=== PATIENT | female | born 2000 | race Caucasian/White ===

== ENCOUNTER 2023-08-03 21:07 | Emergency (ER) | payer BC, SELFPAY ==
--- NOTE | 2023-08-03 | ECG_ITS ---
Test Reason : DIZZINESS/PALPITATIONS Blood Pressure : / mmHG Vent. Rate : 098 BPM Atrial Rate : 098 BPM P-R Int : 116 ms QRS Dur : 078 ms QT Int : 344 ms P-R-T Axes : 010 035 019 degrees QTc Int : 439 ms Normal sinus rhythm Normal ECG No previous ECGs available Referred By: Generic ED Physician Electronically Signed By:Joe Washington
[2023-08-03 21:11] VITALS: BP 136/82; PULSE 106; RESP 18; TEMP 36.8; O2SAT 97; BMI 27.5
--- NOTE | 2023-08-03 21:24 | MHC.EDTECH ---
Patient brought into triage area,EKG taken per order an signed by provider,labs drawn and sent to lab.
[2023-08-03 21:28] LABS: MANUAL DIFF FLAG NO
[2023-08-03 21:29] LABS: Basophils Absolute Auto 0.1 X10*3/uL (0.0-0.2); Basophils Percent Auto 0.4 % (0-2); Eosinophils Absolute Auto 0.2 X10*3/uL (0.0-0.4); Eosinophils Percent Auto 1.9 % (0-4); Hematocrit 36.6 % (37.0-47.0); Hemoglobin 12.9 g/dl (12.0-16.0); Imm Gran Abs Auto 0.04 X10*3/uL (0.00-0.03); Imm Gran Pct Auto 0.3 % (0.0-0.4); Lymphocytes Absolute Auto 3.9 X10*3/uL (1.2-4.9); Lymphocytes Percent Auto 33.5 % (20-40); Mean Corpuscular HGB Conc 35.2 g/dl (31.0-35.0); Mean Corpuscular Volume 85.1 fL (80.0-98.0); Mean Platelet Volume 9.6 fL (9.4-12.3); Monocytes Absolute Auto 1.2 X10*3/uL (0.1-1.2); Monocytes Percent Auto 10.4 % (2-11); Neutrophils Absolute Auto 6.1 x10*3/uL (2.0-8.3); Neutrophils Percent Auto 53.5 % (45-73); Platelet Count 272 X10*3/uL (160-400); Red Cell Distribution Width 13.5 % (11.0-16.0); White Blood Count 11.5 X10*3/uL (4.8-10.8)
[2023-08-03 21:43] LABS: Alanine Aminotransferase 9 U/L (0-31); Albumin Level 4.4 g/dL (3.5-5.0); Alkaline Phosphatase 64 U/L (39-117); Anion Gap 13 (12-20); Aspartate Amino Transferase 12 U/L (5-31); Bilirubin Total 0.3 mg/dL (0.0-1.0); Blood Urea Nitrogen 9 mg/dL (9-16); Calcium 9.5 mg/dL (8.4-10.2); Carbon Dioxide 23 mmol/L (22-29); Chloride 108 mmol/L (96-108); Estimated Glomerular Filt Rate > 60; Glucose Random 99 mg/dL (60-115); Potassium 3.5 mmol/L (3.3-5.1); Sodium 140 mmol/L (135-145); Total Protein 7.7 g/dL (6.5-8.0)
[2023-08-03 21:51] LABS: Troponin-I High Sensitivity < 2.7 ng/L (<3.5-17.0)
--- OUTSIDE RECORDS SUMMARY | 2023-08-03 22:26 | XMS_ITS | Continuity of Care Document ---
Author Organization [facility] Address [address] [place] [id number]- Care Team Providers Care Pattern Chain Builder Name Role Phone Mellissa Noriega DO Primary Care Physician Encounter [facility] R [id number] Date(s): 05/23/22 - 06/22/[address] [id number]- Attending Physician: Russell Dalton Admitting Physician: AdmtrRussell Referring Physician: AdmtrRussell Immunizations Given and Recorded Vaccine Date Status Refusal Reason [id number] 12y+ bivalent booster vax 05/23/22 Given influenza virus vaccine, inactivated 05/23/22 Give n influenza virus vaccine, inactivated 01/13/21 Prabhjot rded influenza virus vaccine, inactivated 01/10/20 Prabhjot rded influenza virus vaccine, inactivated 02/21/19 Prabhjot rded influenza virus vaccine, inactivated 02/02/18 Prabhjot rded influenza virus vaccine, inactivated 02/03/17 Prabhjot rded influenza virus vaccine, inactivated 04/27/16 Prabhjot rded SARS-CoV-2 (COVID-19) mRNA-1273 vaccine 04/09/21 R ecorded SARS-CoV-2 (COVID-19) mRNA-1273 vaccine 06/18/20 R ecorded SARS-CoV-2 (COVID-19) mRNA-1273 vaccine 05/19/20 R ecorded tetanus-diphtheria toxoids (Td) 11/19/20 Recorded meningococcal group B vaccine 11/24/18 Recorded meningococcal group B vaccine 05/04/18 Recorded meningococcal group B vaccine 11/01/17 Recorded Hepatitis A Pediatric Vaccine 04/27/16 Recorded Hepatitis A Pediatric Vaccine 10/23/15 Recorded Meningococcal Conjugate Vaccine 10/23/15 Recorded Meningococcal Conjugate Vaccine 08/06/10 Recorded Human Papillomavirus Vaccine 10/23/15 Recorded Human Papillomavirus Vaccine 10/13/14 Recorded Human Papillomavirus Vaccine 08/27/13 Recorded tetanus/diphtheria/pertussis, acel(Tdap) 08/06/10 Recorded Varicella Virus Vaccine 08/16/07 Recorded Medications Dicyclomine = 20 mg, 0 Refills, Maintenance, 05/23/22 14:32:00 EST, Partial fill upon patient request if the prescription is for a schedule II opioid drug. Start Date: 05/23/22 Status: Ordered hydrOXYzine hydrochloride 25 mg oral tablet 1 capsule, By Mouth, 4 times a day, PRN for itching, # 40 capsule, 0 Refills, Maintenance, 05/23/2313:32:00 EST, Capsule, Partial fill upon patient request if the prescription is for a schedule II opioid drug. Start Date: 05/23/22 Stop Date: 06/02/22 Status: Ordered sertraline 150 mg oral capsule 1 capsule = 150 mg, By Mouth, Daily, 0 Refills, Maintenance, 05/23/22 14:32:00 EST, Partial fill upon patient request if the prescription is for a schedule II opioid drug. Start Date: 05/23/22 Status: Ordered Problem List Condition Confirmation Course Effective Dates Status Health St [facility] Informant Enlarged thyroid Confirmed Active IBS (irritable bowel syndrome) Confirmed Active OCD (obsessive compulsive disorder) Confirmed Active Patient Care team information Care Team Personnel Name: Mellissa Noriega DO Position: S Resident Member Role: PCP Address: Address: [address] [place] [id number]- Care Team Related Persons Name: BETTY HERNÁNDEZ Name: ALEX FOUNTAIN Address: home [address] [place] [id number]
--- OUTSIDE RECORDS SUMMARY | 2023-08-03 22:26 | XMS_ITS | Continuity of Care Document ---
Author Organization [facility] ter Address [address] [place] [phone]- Care Team Providers Care Supervisor Evaporator Name Role Phone Not on Staff, PCP Primary Care Physician Unavail able Encounter [facility] Date(s): 03/23/22 - 04/22/[address] [id number] Patient Care team information Care Team Personnel Name: Not on Staff, PCP Position: [facility] Physician (General Medicine) Member Role: PCP Care Team Related Persons Name: BETTY HERNÁNDEZ Name: ALEX FOUNTAIN Address: home [address] [place] [id number]
[2023-08-03 22:34] LABS: HCG Quantitative < 2 mIU/mL
--- NOTE | 2023-08-03 23:22 | ED.GENADULT ---
HPI - General Adult General Chief complaint: Arrhythmia/Palpitations Stated complaint: heart palpitations,dizzy Time Seen by Provider: 08/03/23 23:08 Source: patient, RN notes reviewed and old records reviewed Mode of arrival: ambulatory Limitations: no limitations History of Present Illness HPI narrative: 23-year-old female with past medical history significant for anxiety presents for evaluation of palpitations. Patient reports that her symptoms started on a.m. while she was at work. She reports she is having intermittent episodes of feeling like her heart was pounding. These episodes lasted approximately 5-10 minutes at a time. She did not have any chest pain with ease. Her symptoms persisted into the afternoon prompting her to seek medical attention She has not on control She states that she decreased her Zoloft 8 days ago from 200 mg to 150 mg She states decrease was due to decreased appetite and trying to balance out side effects She felt as though her symptoms have been quite well controlled until this change Patient does admit to increased stress as well No other complaints or concerns at this time Related Data Allergies Allergy/AdvReac Type Severity Reaction Status Date / Time No Known Allergies Allergy Verified 08/03/23 21:14 Review of Systems Constitutional: Constitutional: Denies body ache(s), Denies chills and Denies fever(s) ENT: Denies sore throat Cardiovascular: Cardiovascular: Denies chest pain, Reports rapid heart rate, Reports lightheadedness, Reports palpitations and Denies dyspnea Respiratory: Respiratory: Denies cough and Denies dyspnea Gastrointestinal: Gastrointestinal: Denies abdominal pain, Denies nausea and Denies vomiting Musculoskeletal: Musculoskeletal: Denies back pain Integumentary/Breasts: Skin/Breast: Denies rash Endocrine: Endocrine: Reports palpitations PMFSH Social History Social History Advance Directives: No Advance Directives Information Provided: No Patient : No Physical Exam ED Vital Signs: Vital Signs - 24 hr 08/03/23 21:11 Temperature 98.3 F Pulse Rate 106 H Respiratory Rate 18 Blood Pressure 136/82 Pulse Oximetry 97 Oxygen Delivery Method Room Air BMI result Body Mass Index 27.5 Const General: healthy appearing, comfortable, no acute distress, alert and awake Nutritional Appearance: well nourished Orientation/consciousness: patient oriented x3 HENMT Head: Yes normocephalic and Yes atraumatic Eyes Eyelids: Yes eyelids normal Conjunctivae: conjunctivae normal Sclerae: sclerae normal Corneas: corneas normal Pupils: Equal, round and reactive pupils present EOM: EOMs intact bilaterally Neck Neck: Yes full ROM Resp Effort & Inspection: normal respiratory effort, able to speak in complete sentences and not labored Cardio Rate: regular rate Rhythm: regular rhythm Skin General skin exam: elasticity normal Neuro General: patient oriented x3 Cranial nerves: Yes Equal, round and reactive pupils present and Yes Bilaterally intact EOM present Cognition (Neuro): normal cognition Extrem Other: Moving all extremities well without any obvious deformities Medical Decision Making Medical Decision Making [facility] Narrative: 23-year-old female presents for evaluation of palpitations. Currently she is asymptomatic. Her symptoms were on and off throughout the day and seemed to be unrelated to exertion. She reports recently decreasing her Zoloft which may be contributing to worsening anxiety. Her EKG was sinus rhythm with a rate of 98 beats minute. No ectopy, ischemic changes or arrhythmias. Electrolytes are within normal limits. The patient is PERC negative. The patient is not . I do not see any indication for further emergent workup at this time. Her vital signs are within normal limits Differential Diagnosis Differential Diagnoses: The differential diagnosis associated with the presentation includes Anxiety Palpitations Arrhythmia Tachycardia Lab Data [facility] Lab Attestation statement: I reviewed the patient's lab results. Mild leukocytosis to 11.5 K. No left shift. No significant anemia. Electrolytes within normal limits. Renal function within normal limits, LFTs within normal limits, troponin undetectable, serum hCG undetectable 08/03/23 21:23 08/03/23 21:23 Labs: Lab Results 08/03/23 Range/Units 21:23 WBC 11.5 H (4.8-10.8) X10*3/uL RBC 4.30 (4.20-5.50) X10*6/uL Hgb 12.9 (12.0-16.0) g/dl Hct 36.6 L (37.0-47.0) % MCV 85.1 (80.0-98.0) fL MCH 30.0 (27.0-33.0) pg MCHC 35.2 H (31.0-35.0) g/dl RDW 13.5 (11.0-16.0) % Plt Count 272 (160-400) X10*3/uL MPV 9.6 (9.4-12.3) fL Immature Gran % (Auto) 0.3 (0.0-0.4) % Neut % (Auto) 53.5 (45-73) % Lymph % (Auto) 33.5 (20-40) % [place] % (Auto) 10.4 (2-11) % Eos % (Auto) 1.9 (0-4) % Baso % (Auto) 0.4 (0-2) % Lymph # (Auto) 3.9 (1.2-4.9) X10*3/uL [place] # (Auto) 1.2 (0.1-1.2) X10*3/uL Eos # (Auto) 0.2 (0.0-0.4) X10*3/uL Baso # (Auto) 0.1 (0.0-0.2) X10*3/uL Abs Immat Gran (auto) 0.04 H (0.00-0.03) X10*3/uL Absolute Neuts (auto) 6.1 (2.0-8.3) x10*3/uL Absolute Nucleated RBC 0.000 (0.0-0.012) X10*3/uL Nucleated RBC % (auto) 0.0 (0.0-0.2) /100WBC Sodium 140 (135-145) mmol/L Potassium 3.5 (3.3-5.1) mmol/L Chloride 108 (96-108) mmol/L Carbon Dioxide 23 (22-29) mmol/L Anion Gap 13 (12-20) BUN 9 (9-16) mg/dL Creatinine 0.73 (0.5-1.4) mg/dL Estim Creat Clear Calc 116.0 Estimated GFR > 60 Random Glucose 99 (60-115) mg/dL Calcium 9.5 (8.4-10.2) mg/dL Total Bilirubin 0.3 (0.0-1.0) mg/dL AST 12 (5-31) U/L ALT 9 (0-31) U/L Alkaline Phosphatase 64 (39-117) U/L Troponin I High Sens < 2.7 (<3.5-17.0) ng/L Total Protein 7.7 (6.5-8.0) g/dL Albumin 4.4 (3.5-5.0) g/dL Beta HCG, Quant < 2 mIU/mL Independent Interpretation I performed an independent interpretation of an: EKG (See above) Discharge Plan Discharge Clinical Impression: Palpitations Patient Disposition: Home, Self-Care Instructions: Heart Palpitations (ED) Additional Instructions: Your workup in the ER today was reassuring. Your EKG was normal, your electrolytes were within normal limits It is possible that your symptoms are related to anxiety You may follow-up with your primary doctor, return for new or worsening symptoms Print Language: Ma[place]
[2023-08-03 23:30] VITALS: BP 119/73; PULSE 93; RESP 16; TEMP 36.7; O2SAT 98
== END 2023-08-03 23:32 | disposition home or self-care (01) ==
PROVIDERS: Emergency Provider Internal Medicine
DX: I49.9 Cardiac arrhythmia, unspecified (principal); R42 Dizziness and giddiness; R10.2 Pelvic and perineal pain; Z79.899 Other long term (current) drug therapy
CPT/HCPCS: 36415; 80053; 84484; 84702; 85025; 93005; 99283; 99284

== ENCOUNTER → 2023-08-03 21:17 | Outpatient (BNV) | payer BC, SELFPAY | PROVIDERS: Emergency Provider Internal Medicine; Visit Provider Internal Medicine Cardiovascular Disease | DX: R00.2 Palpitations (principal) | CPT/HCPCS: 93010 ==